=== PATIENT | male | born 1995 | race Caucasian/White ===

== ENCOUNTER 2024-05-22 21:25 | Emergency (ER) | payer OTHER ==
[~2024-05-22] VITALS: Ht 180.3 cm; Wt 77.1 kg
[2024-05-22] MEDS ORDERED: Ketorolac Tromethamine 30mg Vial IM ONE (21:40)
[2024-05-22 22:45] LABS: CORONAVIRUS COVID-19 AG Negative (NEGATIVE); INFLUENZA A AG Positive (NEGATIVE); INFLUENZA B AG Negative (NEGATIVE)
== END 2024-05-22 22:51 ==
LOC: ER 21:25
PROVIDERS: Physician Assistant
DX: J10.1 Influenza due to other identified influenza virus with other respiratory manifestations (principal)
CPT/HCPCS: 87428-QW; 96372; 99283-25; J1885